=== PATIENT | female | born 1975 | race Caucasian/White ===

== ENCOUNTER 2020-03-08 03:27 | Emergency (ER) | payer MEDICAID, OTHER, SELFPAY ==
[~2020-03-08] VITALS: Ht 172.7 cm; Wt 82.3 kg
--- NOTE | 2020-03-08 03:54 | NUR ---
PATIENT STATED THAT SHE HAS BEEN FEELING BAD FOR THE LAST MONTH; N/V, LOSS OF SMELL AND TASTE, SOB, FEVER AND CHILLS. PATIENT DENIES ANY N/V AT THIS TIME. NO FEVER PRESENT. PATIENT SPEAKING IN FULL SENTENCES WITHOUT COMPLICATIONS.
[2020-03-08] MEDS ORDERED: ONDANSETRON ODT 4 MG ONE (04:09)
--- NOTE | 2020-03-08 04:18 | NUR ---
covid swab collected, patient tolerated poorly. sent to lab. no noted additional needs at this time.
[2020-03-08] MEDS ORDERED: ONDANSETRON ODT 4 MG PO ONE (04:30)
--- NOTE | 2020-03-08 05:46 | NUR ---
PATIENT CLEARED FOR DISCHARGE. NO NOTED ACUTE DISTRESS. PATIENT VERBALIZED UNDERSTANDING OF SELF CARE AND FOLLOW UP CARE AT HOME. PATIENT AMBULATORY TO DISCHARGE WITHOUT COMPLICATIONS WITH BELONGINGS.
[2020-03-08 05:47] VITALS: BP 145/74
== END 2020-03-08 05:49 | disposition home or self-care (01) ==
LOC: ED 05:43
DX: J02.8 Acute pharyngitis due to other specified organisms (principal); R11.2 Nausea with vomiting, unspecified; R05 Cough; B97.89 Other viral agents as the cause of diseases classified elsewhere; Z88.8 Allergy status to other drugs, medicaments and biological substances; Z88.6 Allergy status to analgesic agent; Z20.822 Contact with and (suspected) exposure to COVID-19
CPT/HCPCS: 71045; 87635; 99284; Q0162

== ENCOUNTER 2020-04-16 21:00 | Emergency (ER) | payer MEDICAID ==
[~2020-04-16] VITALS: Ht 172.7 cm; Wt 77.8 kg
[2020-04-16 21:05] VITALS: BP 129/69
--- NOTE | 2020-04-16 21:42 | NUR ---
PT CAME IN CO OF "ITCHING AND BURNING ON MY VAGINA. ITS REALLY BAD AND THERE IS A YELLOW DC". PT PROVIDED US SAMPLE. AWAITING ORDERS
--- NOTE | 2020-04-16 22:24 | NUR ---
PELVIC EXAM SET UP; AWAITING PROVIDER. PATIENT UPDATED ON PLAN OF CARE. NO NOTED ADDITIONAL NEEDS AT THIS TIME. WILL CONTINUE TO MONITOR.
[2020-04-16] MEDS ORDERED: TRIAMCINOLONE CRM 0.025%, 15GM TP ONE (22:44)
[2020-04-16] MEDS ORDERED: metroNIDAZOLE 500 MG TABLET ONE (22:57)
[2020-04-16] MEDS ORDERED: AZITHROMYCIN 500 MG TABLET ONE (22:57)
[2020-04-16 23:00] LABS: WET PREP WBCS MODERATE (FEW)
[2020-04-16] MEDS ORDERED: AZITHROMYCIN 500 MG TABLET PO ONE (23:00)
[2020-04-16] MEDS ORDERED: CEFTRIAXONE 250 MG IM ONE (23:00)
[2020-04-16] MEDS ORDERED: metroNIDAZOLE 500 MG TABLET PO ONE (23:00)
[2020-04-16 23:14] LABS: CLUE CELLS NONE SEEN (NONE SEEN)
== END 2020-04-16 23:47 | disposition home or self-care (01) ==
LOC: ED 23:15
DX: N89.8 Other specified noninflammatory disorders of vagina (principal)
CPT/HCPCS: 87210; 87491; 87591; 87808; 96372; 99283; J0696